=== PATIENT | male | born 1975 | race Caucasian/White ===

== ENCOUNTER 2017-07-31 23:34 | Emergency (ER) | payer OTHER ==
[2017-07-31] MEDS ORDERED: Proparacaine 0.5% Ophth Soln 15 ML Bottle EYERT ONE (23:50)
[2017-07-31] MEDS ORDERED: Proparacaine 0.5% Ophth Soln 15 ML Bottle ONE (23:52)
--- NOTE | 2017-07-31 23:56 | EDM.PDOC ---
ED HPI GENERAL MEDICAL PROBLEM - General Chief Complaint: Eye Problems Stated Complaint: PT HURT EYES AT WORK Time Seen by Provider: 07/31/17 23:45 - History of Present Illness INITIAL COMMENTS - FREE TEXT/NARRATIVE: HISTORY AND PHYSICAL: History of present illness: The patient is a 42-year-old male who presents from work after having some petroleum oil splashed into his right eye. He says that this happened before and he has usually "toughed it out" but today it was very painful and he felt like his vision was blurry so he came for evaluation. The patient wears glasses but no contact lenses and had no direct trauma or blunt force injury to his face or eye. Prior to these events he was in his usual state of good health and this exposure occurred about 30 minutes ago. He says that he did irrigate the eye by splashing water and it they did not have any formal eye irrigation at his workplace. He describes that he does have a slight headache and pain in his eye but he is more concerned about the blurriness of his vision. Review of systems: As per history of present illness and below otherwise all systems reviewed and negative. Past medical history: As per history of present illness and as reviewed below otherwise noncontributory. Surgical history: As per history of present illness and as reviewed below otherwise noncontributory. Social history: No reported history of drug or alcohol abuse. Family history: As per history of present illness and as reviewed below otherwise noncontributory. Physical exam: MO: Well-developed well-nourished man who is nontoxic and speaking clearly in the ED. Vital signs of been reviewed by me. He is slightly photophobic, evaluation. HEENT: Atraumatic, normocephalic, pupils reactive, EOMs are intact, there is no visible soft tissue injury or periorbital erythema injuries, the sclera is not injected, no foreign bodies were grossly appreciated negative for conjunctival pallor or scleral icterus, mucous membranes moist, throat clear, neck supple, nontender, trachea midline. Lungs: Clear to auscultation, breath sounds equal bilaterally, chest nontender. Heart: S1S2, regular rate and rhythm no overt murmurs Abdomen: Soft, nondistended, nontender. NABS Pelvis: Deferred Genitourinary: Deferred. Rectal: Deferred. Extremities: Atraumatic, negative for cords or calf pain. Neurovascular unremarkable. Neuro: Awake, alert, oriented. Cranial nerves II through XII unremarkable. Cerebellum unremarkable. Motor and sensory unremarkable throughout. Exam nonfocal. Diagnostics: Visual acuity per nursing fluoroscein stain, Therapeutics: Proparacaine With fluoroscein stain there is no evidence of any uptake for corneal abrasion and no foreign bodies were appreciated. Please note that we currently do not have any pH paper to assess the patient's eye so we will go ahead and place Clem lens and irrigate the eye and I will contact ophthalmology. Poison control was contacted and they recommend assessing pH with pH paper and then irrigation until neutral. Per nursing patient tolerated the irrigation of the eye well, 500 mL. I will contact the processor inspector on-call doctor Cornelius [id number]: Case was discussed with the processor inspector Dr Shields . He would like another 500 mL of irrigation to be performed and no eyedrops to be given. He like to see the patient tomorrow in his clinic at 1 PM. the patient is aware of this care plan. Impression: Oil exposure to right eye Definitive disposition and diagnosis as appropriate pending reevaluation and review of above. right eye Pain Score (Numeric/FACES): 9 - Related Data Allergies Allergy/AdvReac Type Severity Reaction Status Date / Time morphine Allergy Hives Verified 07/31/17 23:48 Home Meds: Home Meds . [No Known Home Meds] 07/31/17 [History] ED ROS GENERAL - Review of Systems Review Of Systems: ROS reveals no pertinent complaints other than HPI. ED EXAM GENERAL W FULL EYE - Physical Exam Exam: See Below (See dictation) Course - Vital Signs Last Recorded V/S: Last Vital Signs Temp 36.1 C 07/31/17 23:40 Pulse 76 07/31/17 23:40 Resp 18 07/31/17 23:40 BP 130/76 07/31/17 23:40 Pulse Ox 98 07/31/17 23:40 - Orders/Labs/Meds Meds: Medications Discontinued Medications Generic Name Dose Route Start Last Admin Trade Name Eddieq PRN Reason Stop Dose Admin Proparacaine HCl 1 ml 07/31/17 23:50 08/01/17 00:08 Proparacaine 0.5% Ophth Soln EYERT 07/31/17 23:51 2 drop ONETIME ONE Administration Proparacaine HCl Confirm 07/31/17 23:52 08/01/17 00:09 Proparacaine 0.5% Ophth Soln Administered 07/31/17 23:53 Not Given Dose 15 ml .ROUTE .STK-MED ONE Departure - Departure Time of Disposition: 00:31 Disposition: Home, Self-Care 01 Condition: Good Clinical Impression: Chemical injury to cornea of right eye Qualifiers: Encounter type: initial encounter Qualified Code(s): T26.61XA - Corrosion of cornea and conjunctival sac, right eye, initial encounter - Discharge Information Referrals: PCP,None [Primary Care Provider] - Forms: ED Department Discharge Additional Instructions: The following information is given to patients seen in the emergency department who are being discharged to home. This information is to outline your options for follow-up care. We provide all patients seen in our emergency department with a follow-up referral. The need for follow-up, as well as the timing and circumstances, are variable depending upon the specifics of your emergency department visit. If you don't have a primary care physician on staff, we will provide you with a referral. We always advise you to contact your personal physician following an emergency department visit to inform them of the circumstance of the visit and for follow-up with them and/or the need for any referrals to a consulting specialist. The emergency department will also refer you to a specialist when appropriate. This referral assures that you have the opportunity for followup care with a specialist. All of these measure are taken in an effort to provide you with optimal care, which includes your followup. Under all circumstances we always encourage you to contact your private physician who remains a resource for coordinating your care. When calling for followup care, please make the office aware that this follow-up is from your recent emergency room visit. If for any reason you are refused follow-up, please contact the [facility] emergency department at and ask to speak to the emergency department charge nurse. [address] [address] [address] [facility] to see the processor inspector, Dr. Shields, tomorrow afternoon at 1 PM. Return to ER as needed and as discussed. Please try to not manipulate your eye or rub it.
== END 2017-08-01 00:50 | disposition home or self-care (01) ==
LOC: MW.ED 23:34
DX: T52.0X1A Toxic effect of petroleum products, accidental (unintentional), initial encounter (principal); T26.61XA Corrosion of cornea and conjunctival sac, right eye, initial encounter; Z88.5 Allergy status to narcotic agent; X58.XXXA Exposure to other specified factors, initial encounter; Y99.0 Civilian activity done for income or pay
CPT/HCPCS: 99283; 99284